=== PATIENT | female | born 2005 | race Two or more races ===

== ENCOUNTER 2023-10-03 13:32 | Outpatient (REF) | payer OTHER, SELFPAY ==
[2023-10-03 13:54] LABS: MANUAL DIFF FLAG NO
[2023-10-03 14:14] LABS: Basophils Absolute Auto 0.1 X10*3/uL (0.0-0.2); Basophils Percent Auto 0.8 % (0-2); Eosinophils Absolute Auto 0.1 X10*3/uL (0.0-0.4); Eosinophils Percent Auto 1.1 % (0-4); Hematocrit 27.1 % (37.0-47.0); Hemoglobin 7.1 g/dl (12.0-16.0); Imm Gran Abs Auto 0.01 X10*3/uL (0.00-0.03); Imm Gran Pct Auto 0.1 % (0.0-0.4); Lymphocytes Absolute Auto 1.9 X10*3/uL (1.2-4.9); Lymphocytes Percent Auto 25.8 % (20-40); Mean Corpuscular HGB Conc 26.2 g/dl (31.0-35.0); Mean Corpuscular Hemoglobin 16.5 pg (27.0-33.0); Mean Platelet Volume 10.3 fL (9.4-12.3); Monocytes Absolute Auto 0.6 X10*3/uL (0.1-1.2); Monocytes Percent Auto 8.6 % (2-11); Neutrophils Absolute Auto 4.6 x10*3/uL (2.0-8.3); Neutrophils Percent Auto 63.6 % (45-73); Platelet Count 376 X10*3/uL (160-400); Red Blood Count 4.31 X10*6/uL (4.20-5.50); Red Cell Distribution Width 17.4 % (11.0-16.0); White Blood Count 7.2 X10*3/uL (4.8-10.8)
[2023-10-03 14:15] LABS: Mean Corpuscular Volume 62.9 fL (80.0-98.0)
[2023-10-03 15:15] LABS: Ferritin < 2 ng/mL (10-122)
== END 2023-10-03 13:33 | disposition home or self-care (01) ==
LOC: HO.LAB 13:32
PROVIDERS: PCP Internal Medicine; Visit Provider Internal Medicine
DX: Z00.00 Encounter for general adult medical examination without abnormal findings (principal); D50.8 Other iron deficiency anemias; N92.0 Excessive and frequent menstruation with regular cycle; N89.8 Other specified noninflammatory disorders of vagina
CPT/HCPCS: 36415; 82728; 85025

== ENCOUNTER 2023-10-28 14:30 | Outpatient (RCR) | payer OTHER, SELFPAY ==
[2023-10-17 14:46] VITALS: BP 121/67; PULSE 104; RESP 16; TEMP 37.2; O2SAT 100
[2023-10-17] MEDS: 0.9 % Sodium Chloride Flush 10 ML SYRINGE 5 ML IVFLUSH (14:57)
[2023-10-17] MEDS: Iron Sucrose Complex 200 MG in 0.9 % Sodium Chloride 100 ML 440 MG IV (14:57)
[2023-10-21 14:36] VITALS: BP 108/65; PULSE 93; RESP 16; TEMP 37.2; O2SAT 100
[2023-10-21] MEDS: 0.9 % Sodium Chloride Flush 10 ML SYRINGE 5 ML IVFLUSH (14:41)
[2023-10-21] MEDS: Iron Sucrose Complex 200 MG in 0.9 % Sodium Chloride 100 ML 440 MG IV (14:41)
[2023-10-23 14:31] VITALS: BP 111/74; PULSE 99; RESP 20; TEMP 37.1; O2SAT 99
[2023-10-23] MEDS: Iron Sucrose Complex 200 MG in 0.9 % Sodium Chloride 100 ML 440 MG IV (14:39)
[2023-10-23] MEDS: 0.9 % Sodium Chloride Flush 10 ML SYRINGE 5 ML IVFLUSH (15:03)
[2023-10-25 14:30] VITALS: BP 103/65; PULSE 92; RESP 16; TEMP 36.6; O2SAT 99
[2023-10-25] MEDS: Iron Sucrose Complex 200 MG in 0.9 % Sodium Chloride 100 ML 440 MG IV (14:45)
[2023-10-28 14:37] VITALS: BP 116/67; PULSE 105; RESP 20; TEMP 36.6; O2SAT 100
[2023-10-28] MEDS: Iron Sucrose Complex 200 MG in 0.9 % Sodium Chloride 100 ML 440 MG IV (14:44)
[2023-10-28] MEDS: 0.9 % Sodium Chloride Flush 10 ML SYRINGE 5 ML IVFLUSH (14:45)
== END 2023-10-28 15:07 | disposition home or self-care (01) ==
LOC: HO.INF 14:30
PROVIDERS: Visit Provider Internal Medicine
DX: D50.8 Other iron deficiency anemias (principal)
CPT/HCPCS: 96365; 96374; J1756